=== PATIENT | female | born 1955 | race African-American/Black ===

== ENCOUNTER 2022-01-21 09:28 | Inpatient (IN) | payer MEDICARE, MEDICAID, SELFPAY ==
[2022-01-21] VITALS (14 sets, daily range): BP systolic 105–142; BP diastolic 60–84; PULSE 99–116; RESP 16–18; TEMP 37–37.4; O2SAT 93–100; BMI 27.1; BMI 20.5
--- NOTE | 2022-01-21 09:37 | XR_ITS ---
FINAL REPORT CLINICAL HISTORY: fever, cough FINDINGS: A single portable view of the chest was obtained. The heart size and pulmonary vascularity are within normal limits. The mediastinum is within normal limits. There are mild left lung base opacities favoring atelectasis over pneumonia. The bony thorax is intact. IMPRESSION: Mild left lung base opacities favoring atelectasis over pneumonia. Reviewed, Interpreted and Dictated by Zi Kumar III, MD Transcribed by Laquita Metcalf Authenticated and [facility]
--- NOTE | 2022-01-21 09:37 | CT_ITS ---
FINAL REPORT CLINICAL HISTORY: vomiting, CP FINDINGS: CT OF THE ABDOMEN AND PELVIS WITH CONTRAST Axial CT images of the abdomen and pelvis were obtained after the administration of IV contrast . This study was performed with techniques to keep radiation doses as low as reasonably achievable, (ALARA). Individualized dose reduction techniques using automated exposure control or adjustment of mA and/or kV according to the patient's size were employed. Abdomen: There is motion on many of the images which decreases the sensitivity of the exam. The liver has an unremarkable appearance, without evidence of mass or biliary ductal dilatation. The spleen is unremarkable. No adrenal mass is present. The pancreas has an unremarkable appearance. There are small bilateral renal cysts There is no renal stone or hydronephrosis. The aorta is normal in caliber. There are multiple air-filled bowel loops in a nonspecific pattern. There is a moderate amount of retained stool. Pelvis: The appendix is not well-visualized. There is a Cortes catheter in the urinary bladder. Postoperative changes are seen in the right femur. Severe degenerative changes are seen in both hips. IMPRESSION: Multiple air filled bowel loops in a nonspecific pattern with a moderate amount of retained stool. Bilateral renal cysts. Reviewed, Interpreted and Dictated by Zi Kumar III, MD Transcribed by Sadie Ivey Authenticated and . [facility]
--- NOTE | 2022-01-21 09:42 | HMH.EDGENADL ---
Discharge Plan Disposition Chief Complaint: Fever Prescriptions Prescriptions: No Action tizanidine 2 mg Tablet 4 mg PO TID lisinopril 20 mg Tablet 20 mg PO DAILY glucosamine sulfate [Glucosamine] 500 mg Tablet 500 mg PO DAILY Rx Instructions: administer with a meal acetaminophen 500 mg Tablet 500 mg PO Q6H PRN (Reason: Pain) metoclopramide HCl 5 mg Tablet 5 mg PO BID methocarbamol 750 mg Tablet 750 mg PO TID lansoprazole 30 mg Capsule,Delayed Release(Dr/Ec) 30 mg PO DAILY furosemide 20 mg Tablet 20 mg PO QODHS polyethylene glycol 3350 17 gram/dose Powder 17 g PO DAILY loratadine 10 mg Tablet 10 mg PO DAILY promethazine-DM 6.25-15 mg/5 mL Syrup 5 ml PO Q6H PRN (Reason: N/V) calcium carbonate 250 mg Tablet,Chewable 250 mg PO BID PRN (Reason: reflux) ondansetron HCl [Zofran] 4 mg Tablet 4 mg PO Q6H PRN (Reason: N/V) acetaminophen 500 mg Tablet 500 mg PO Q4H PRN (Reason: Pain) Enema 19-7 gram/118 mL Enema 133 ml ID ONCE PRN (Reason: Constipation) Clinical Impressions Clinical Impression: SIRS (systemic inflammatory response syndrome), COVID-19 Discharge ED Provider: Nic Raza General Adult HPI General Chief complaint: Fever Stated complaint: N/V Time Seen by Provider: 01/21/22 09:37 History of Present Illness HPI narrative: Patient has past medical history of cerebral palsy in long-term care facility presents emergency department for evaluation of retching. History is obtained by report, by patient. Onset was acute occurring over the last 24 to 48 hours, associated nonproductive cough, retching however no vomiting. Patient had fever T-max 101 at outside care facility. Patient reportedly had a tooth pulled earlier this week. Last bowel movement unknown. Patient denies dysuria, chest pain. No other acute complaints at this time. Related Data Home Medications Medication Instructions Recorded Confirmed acetaminophen 500 mg tablet 500 mg PO Q4H PRN Pain 01/21/22 01/21/22 acetaminophen 500 mg tablet 500 mg PO Q6H PRN Pain 01/21/22 01/21/22 calcium carbonate 250 mg chewable 250 mg PO BID PRN reflux 01/21/22 01/21/22 tablet furosemide 20 mg tablet 20 mg PO QODHS Edema 01/21/22 01/21/22 glucosamine sulfate 500 mg tablet 500 mg PO DAILY cerebral palsy 01/21/22 01/21/22 (Glucosamine) lansoprazole 30 mg capsule,delayed 30 mg PO DAILY GERD 01/21/22 01/21/22 release lisinopril 20 mg tablet 20 mg PO DAILY Hypertension 01/21/22 01/21/22 loratadine 10 mg tablet 10 mg PO DAILY allergies 01/21/22 01/21/22 methocarbamol 750 mg tablet 750 mg PO TID cerebral palsy 01/21/22 01/21/22 metoclopramide HCl 5 mg tablet 5 mg PO BID GERD 01/21/22 01/21/22 ondansetron HCl 4 mg tablet 4 mg PO Q6H PRN N/V 01/21/22 01/21/22 polyethylene glycol 3350 17 17 g PO DAILY constipation 01/21/22 01/21/22 gram/dose oral powder promethazine-DM 6.25 mg-15 mg/5 mL 5 ml PO Q6H PRN N/V 01/21/22 01/21/22 oral syrup sodium phosphates 19 gram-7 133 ml ID ONCE PRN Constipation 01/21/22 01/21/22 gram/118 mL enema (Enema) tizanidine 2 mg tablet 4 mg PO TID left arm pain 01/21/22 01/21/22 Allergies Allergy/AdvReac Type Severity Reaction Status Date / Time No Known Allergies Allergy Verified 01/21/22 10:01 [facility] Medical History (Updated 01/21/22 @ 14:53 by Nic Raza MD) Cerebral palsy Constipation, unspecified Contracture, left elbow Contracture, left hand Contracture, left shoulder Contracture, right elbow Contracture, right hand Contracture, right shoulder COVID-19 Essential (primary) hypertension GERD without esophagitis Hypothyroidism Muscle weakness (generalized) Noninfective gastroenteritis and colitis, unspecified Pain in left shoulder 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
--- NOTE | 2022-01-21 10:01 | ECG_ITS ---
APPROVED REPORT Exam: Resting ECG HR:114 bpm ECG Measurements Heart Rate 114 AXES MS 159 P 58 QRSd 76 QRS 60 QT 306 T 51 QTc 373 Conclusion SINUS TACHYCARDIA ABNORMAL RHYTHM ECG UNCONFIRMED REPORT Electronically signed by : Manuel Escobar MD 01/24/2022 18:03:32
--- NOTE | 2022-01-21 10:06 | PC.NURSE ---
Obtained EKG Pt is still saying she still feeling nausea at this time tristan bag in bed with pt
[2022-01-21 10:11] LABS: Basophils % 0.2 % (0.1-2.0); Eosinophils # 0.2 K/mm3 (0.0-0.4); Hematocrit 48.3 % (37.0-47.0); Hemoglobin 14.5 g/dL (12.2-16.2); Lymphocytes # 1.7 K/mm3 (0.7-4.5); Lymphocytes % 18.8 % (10-50); Mean Corpuscular Hemoglobin 26.9 pg (27.0-31.2); Mean Corpuscular Volume 89.8 fl (81-99); Mean Platelet Volume 9.5 fl (7.4-10.4); Monocytes # 0.4 K/mm3 (0.1-1.0); Monocytes % 4.7 % (1.7-9.3); Neutrophils # 6.7 K/mm3 (1.8-7.8); Neutrophils % 74.2 % (37.0-80.0); Platelet Count 222 K/mm3 (142-424); Red Blood Count 5.38 M/mm3 (4.20-5.40); Red Cell Distribution Width 15.1 % (11.5-17.5)
--- NOTE | 2022-01-21 10:11 | PC.NURSE ---
Pharmacy is mixing antibiotics at this time.
[2022-01-21 10:14] LABS: Chloride 106 mmol/L (98-107); Potassium 4.5 mmoL/L (3.5-5.1); Sodium 142 mmol/L (136-145)
[2022-01-21 10:17] LABS: Alanine Aminotransferase 22 U/L (12-78); Albumin Level 4.7 g/dl (3.5-5.0); Albumin/Globulin Ratio 1.1 (1.1-1.8); Alkaline Phosphatase 179 U/L (38-126); Anion Gap 18.5 mEq/L (5-15); Aspartate Amino Transferase 35 U/L (14-36); Bilirubin,Total 0.2 mg/dl (0.2-1.3); Blood Urea Nitrogen 13 mg/dl (7-17); Calcium 9.3 mg/dl (8.4-10.2); Carbon Dioxide 22 mmol/L (22.0-30.0); Creatinine Clearance Estimated 49 mL/min (50-200); Estimated Glomerular Filt Rate 100 ml/min (>60); GFR (African American) 121 ML/MIN (>60); Globulin 4.1 g/dL (1.3-3.2); Glucose 88 mg/dl (74-100); Lipase 155 U/L (23-300); Total Protein,Serum 8.8 g/dl (6.3-8.2)
--- NOTE | 2022-01-21 10:18 | PC.NURSE ---
spoke with pt sister jacoby ([phone]), she was calling to check to see if pt had gotten here yet and states she will be coming to see pt.
--- NOTE | 2022-01-21 10:24 | PC.NURSE ---
1020-notified lab of RIANA HORN adding ddimer on pt, spoke daniele
[2022-01-21 10:34] LABS: D-Dimer 0.58 ug/mL (0.0-0.5)
[2022-01-21 10:47] LABS: Microscopic, Urine URINE MICROSCOPIC (MICROSCOPIC)
--- NOTE | 2022-01-21 10:47 | CT_ITS ---
FINAL REPORT TECHNIQUE: Then section axial CT images of the chest were obtained with contrast. Three-D reformatted images were also obtained.This study was performed with techniques to keep radiation doses as low as reasonably achievable (ALARA). Individualized dose reduction techniques using automated exposure control or adjustment of mA and/or kV according to the patient''s size were employed. CLINICAL HISTORY: tachy/elevated dimer FINDINGS: There is no evidence of pulmonary embolism. There is no evidence of thoracic aortic aneurysm or dissection. There is no evidence of mediastinal or hilar mass or adenopathy. There is no evidence of pulmonary mass or suspicious nodule. There is mild bibasilar atelectasis. Limited images of the upper abdomen show the esophagus to be moderately distended with air and fluid. This is of uncertain significance but could be due to reflux. There is dextroscoliosis. IMPRESSION: No evidence of pulmonary embolism or aortic dissection.. Moderate distension of the esophagus with air and fluid of uncertain significance could be due to reflux. Reviewed, Interpreted and Dictated by Zi Kumar III, MD Transcribed by Sadie Ivey Authenticated and [facility]
--- NOTE | 2022-01-21 10:48 | PC.NURSE ---
DEDE @ [facility] @ BS
[2022-01-21 10:51] LABS: Appearance,Urine CLEAR (Clear); Blood, Urine TRACE-I (Negative); Color,Urine YELLOW (Yellow); Glucose,Urine (UA) Negative (Negative); Ketones,Urine 2+ (Negative); Leukocyte Esterase,Urine 1+ (Negative); Nitrate,Urine Negative (Negative); PH,Urine 5.5 (5.0-8.5); Protein,Urine Negative (Negative); Specific Gravity, Urine 1.025 (1.005-1.030); Urobilinogen,Urine 0.2 EU/dl (0.2)
--- NOTE | 2022-01-21 11:09 | PC.NURSE ---
20g ultrasound guided EJ placed in rt neck per Dr. Raza. 40mL saline flush used to check proper placement. Dr Raza cleared IV for use of fluid/med administration.
[2022-01-21 11:12] LABS: Bilirubin,Urine Negative (Negative)
[2022-01-21 11:13] LABS: Bacteria,Urine Trace /lpf; RBC,Urine Occasional #/hpf (0-3); WBC,Urine Occasional #/hpf (0-3)
--- NOTE | 2022-01-21 11:46 | PC.NURSE ---
Pt to rad
--- NOTE | 2022-01-21 12:32 | PC.NURSE ---
speaking to pt's mother for update on POC
--- NOTE | 2022-01-21 12:33 | PC.NURSE ---
covid swab sent to lab at this time
[2022-01-21 12:44] LABS: Influenza A, PCR Not Detected (NotDetected); Influenza B, PCR Not Detected (NotDetected)
[2022-01-21 13:53] LABS: Coronavirus 19, PCR Detected (NotDetected)
--- NOTE | 2022-01-21 14:26 | PC.NURSE ---
pt sister at , states no needs at this time. Will continue to monitor
--- NOTE | 2022-01-21 14:28 | PC.NURSE ---
RIANA HORN at discussing test results with pt and sistere
--- NOTE | 2022-01-21 14:34 | PC.NURSE ---
RIANA HORN speaking dr. bosch (hospitalist)
--- NOTE | 2022-01-21 14:42 | PC.NURSE ---
notified care management of admission, spoke with loi
--- NOTE | 2022-01-21 14:58 | PC.NURSE ---
MD called hospitalist and this nurse called [facility] to notify them that pt is COVID positive.
--- NOTE | 2022-01-21 15:46 | PC.NURSE ---
Report called to Elenita Metcalf
--- NOTE | 2022-01-21 15:47 | EXP.PHA.CONS ---
Pharmacy Consult Date: 01/21/22 Time: 15:47 Referring provider: DR. NOVA Reason for Consult:: VANCOMCYIN DOSING Allergies Allergy/AdvReac Type Severity Reaction Status Date / Time No Known Allergies Allergy Verified 01/21/22 10:01 Home Medications Medication Instructions Recorded Confirmed Type acetaminophen 500 mg tablet 500 mg PO Q4H PRN Pain 01/21/22 01/21/22 History acetaminophen 500 mg tablet 500 mg PO Q6H PRN Pain 01/21/22 01/21/22 History calcium carbonate 250 mg chewable 250 mg PO BID PRN reflux 01/21/22 01/21/22 History tablet furosemide 20 mg tablet 20 mg PO QODHS Edema 01/21/22 01/21/22 History glucosamine sulfate 500 mg tablet 500 mg PO DAILY cerebral palsy 01/21/22 01/21/22 History (Glucosamine) lansoprazole 30 mg capsule,delayed 30 mg PO DAILY GERD 01/21/22 01/21/22 History release lisinopril 20 mg tablet 20 mg PO DAILY Hypertension 01/21/22 01/21/22 History loratadine 10 mg tablet 10 mg PO DAILY allergies 01/21/22 01/21/22 History methocarbamol 750 mg tablet 750 mg PO TID cerebral palsy 01/21/22 01/21/22 History metoclopramide HCl 5 mg tablet 5 mg PO BID GERD 01/21/22 01/21/22 History ondansetron HCl 4 mg tablet 4 mg PO Q6H PRN N/V 01/21/22 01/21/22 History polyethylene glycol 3350 17 17 g PO DAILY constipation 01/21/22 01/21/22 History gram/dose oral powder promethazine-DM 6.25 mg-15 mg/5 mL 5 ml PO Q6H PRN N/V 01/21/22 01/21/22 History oral syrup sodium phosphates 19 gram-7 133 ml HI ONCE PRN Constipation 01/21/22 01/21/22 History gram/118 mL enema (Enema) tizanidine 2 mg tablet 4 mg PO TID left arm pain 01/21/22 01/21/22 History New Prescriptions to Start Prescriptions: Height: 1.42 m Weight: 54.885 kg Laboratory Results:: Laboratory Results - last 24 hr 01/21/22 09:55: WBC 9.0, RBC 5.38, Hgb 14.5, Hct 48.3 H, MCV 89.8, MCH 26.9 L, MCHC 30.0 L, RDW 15.1, Plt Count 222, MPV 9.5, Neut % (Auto) 74.2, Lymph % (Auto) 18.8, [place] % (Auto) 4.7, Eos % (Auto) 2.0, Baso % (Auto) 0.2, Neut # (Auto) 6.7, Lymph # (Auto) 1.7, [place] # (Auto) 0.4, Eos # (Auto) 0.2, Baso # (Auto) 0.0 01/21/22 09:55: Sodium 142, Potassium 4.5, Chloride 106, Carbon Dioxide 22, Anion Gap 18.5 H, BUN 13, Creatinine 0.60, Estimated Creat Clear 49, Estimated GFR 100, Est GFR ( Amer) 121, Glucose 88, Calcium 9.3, Total Bilirubin 0.2, AST 35, ALT 22, Alkaline Phosphatase 179 H, Total Protein 8.8 H, Albumin 4.7, Globulin 4.1 H, Albumin/Globulin Ratio 1.1, Lipase 155 01/21/22 09:55: Lactate 1.0 01/21/22 09:55: D-Dimer 0.58 H 01/21/22 10:43: Urine Color Yellow, Urine Appearance Clear, Urine pH 5.5, Ur Specific [place] 1.025, Urine Protein Negative, Urine Glucose (UA) Negative, Urine Ketones 2+, Urine Blood Trace-i, Urine Nitrate Negative, Urine Bilirubin Negative, Urine Urobilinogen 0.2, Ur Leukocyte Esterase 1+ A, Urine RBC Occasional, Urine WBC Occasional, Ur Squamous Epith Cells 3-5, Urine Bacteria Trace 01/21/22 12:31: SARS-CoV-2 (PCR) Detected A, Influenza A Untype (PCR) Not detected, Influenza Type B (PCR) Not detected Medical History: Medical History (Updated 01/21/22 @ 14:53 by Nic Raza MD) Cerebral palsy Constipation, unspecified Contracture, left elbow Contracture, left hand Contracture, left shoulder Contracture, right elbow Contracture, right hand Contracture, right shoulder COVID-19 Essential (primary) hypertension GERD without esophagitis Hypothyroidism Muscle weakness (generalized) Noninfective gastroenteritis and colitis, unspecified Pain in left shoulder 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
--- NOTE | 2022-01-21 15:51 | PC.NURSE ---
pt repositioned in bed and pillow placed behind her for comfort
--- NOTE | 2022-01-21 16:18 | PC.NURSE ---
notified dr. bosch per senior care staff pt was covid positive on 12/14/21.
--- NOTE | 2022-01-21 16:51 | PC.NURSE ---
devikasurkarolina staff at to transport pt
--- NOTE | 2022-01-21 17:00 | PC.NURSE ---
patient arrived to floor by stretcher from ED
--- NOTE | 2022-01-21 18:24 | EXP.HP ---
History of Present Illness *Admission Date: 01/21/22 *Reason for visit:: cough, nausea *History of present illness: Ms. Bowman is a 66-year-old female who is a long-term resident of [facility]. She has a history significant for spastic cerebral palsy, hypothyroidism, hypertension, chronic GERD. She presents to the ER due to worsening cough, fever, nausea and vomiting over the past 24 to 48 hours. Her cough has been nonproductive. History obtained in the ER from family and patient. Fever to 101 at [facility]. Of note family reported she had had a tooth pulled earlier this week. She denies shortness of breath, chest pain, dysuria, diarrhea. Reports she feels like throwing up but cannot get it up. Cough not productive. Evaluation in the ER found her to have criteria for sepsis including tachycardia and fever. Positive for COVID-19. This is her second case in less than 3 months. Admitted to medicine for COVID-19 treatment given meeting septic criteria. On evaluation after arriving to the floor, she is pleasant but appears ill. States she is cold even though she is warm to touch. Has a dry nonproductive cough. 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 Unspecified urinary incontinence Surgical History History of left hip replacement History of right hip replacement Family History No significant family history Social History Smoking Status: Never smoker alcohol intake: never current occupational status: unemployed and disabled Travel in the last 8 weeks: None Review of Systems Review of Systems Review of systems (narrative): Complete review of systems performed, pertinent positives and negatives as per HPI Meds Home Medications and Allergies Home Medications Medication Instructions Recorded Confirmed Type acetaminophen 500 mg tablet 500 mg PO Q4H PRN Pain 01/21/22 01/21/22 History acetaminophen 500 mg tablet 500 mg PO Q6H PRN Pain 01/21/22 01/21/22 History calcium carbonate 250 mg chewable 250 mg PO BID PRN reflux 01/21/22 01/21/22 History tablet furosemide 20 mg tablet 20 mg PO QODHS Edema 01/21/22 01/21/22 History glucosamine sulfate 500 mg tablet 500 mg PO DAILY cerebral palsy 01/21/22 01/21/22 History (Glucosamine) lansoprazole 30 mg capsule,delayed 30 mg PO DAILY GERD 01/21/22 01/21/22 History release lisinopril 20 mg tablet 20 mg PO DAILY Hypertension 01/21/22 01/21/22 History loratadine 10 mg tablet 10 mg PO DAILY allergies 01/21/22 01/21/22 History methocarbamol 750 mg tablet 750 mg PO TID cerebral palsy 01/21/22 01/21/22 History metoclopramide HCl 5 mg tablet 5 mg PO BID GERD 01/21/22 01/21/22 History ondansetron HCl 4 mg tablet 4 mg PO Q6H PRN N/V 01/21/22 01/21/22 History polyethylene glycol 3350 17 17 g PO DAILY constipation 01/21/22 01/21/22 History gram/dose oral powder promethazine-DM 6.25 mg-15 mg/5 mL 5 ml PO Q6H PRN N/V 01/21/22 01/21/22 History oral syrup sodium phosphates 19 gram-7 133 ml VT ONCE PRN Constipation 01/21/22 01/21/22 History gram/118 mL enema (Enema) tizanidine 2 mg tablet 4 mg PO TID left arm pain 01/21/22 01/21/22 History New Prescriptions to Start Prescriptions: Allergies Allergy/AdvReac Type Severity Reaction Status Date / Time No Known Allergies Allergy Fadi
[2022-01-22 04:00] VITALS: BP 115/83; PULSE 99; RESP 20; TEMP 37.4; O2SAT 92
--- NOTE | 2022-01-22 06:40 | PC.NURSE ---
Pt aox4. no c/o voiced to staff. Pt completely immobile other then lifting/turning head. Pt has been repositioned and oral care provided q2hrs and upon request. Baby monitor in room in place of call light. Pt has been able to voice needs by talking into baby monitor.
--- NOTE | 2022-01-22 07:44 | P.PN_ITS ---
Subjective *Date: 01/22/22 *Time: 07:44 Medical Exam Vital signs and Labs for Last 24 Hours: Temp Pulse Resp BP Pulse Ox 99.3 F 99 H 20 115/83 92 L 01/22/22 04:00 01/22/22 04:00 01/22/22 04:00 01/22/22 04:00 01/22/22 04:00 Laboratory Results - last 24 hr 01/21/22 09:55: WBC 9.0, RBC 5.38, Hgb 14.5, Hct 48.3 H, MCV 89.8, MCH 26.9 L, MCHC 30.0 L, RDW 15.1, Plt Count 222, MPV 9.5, Neut % (Auto) 74.2, Lymph % (Auto) 18.8, [place] % (Auto) 4.7, Eos % (Auto) 2.0, Baso % (Auto) 0.2, Neut # (Auto) 6.7, Lymph # (Auto) 1.7, [place] # (Auto) 0.4, Eos # (Auto) 0.2, Baso # (Auto) 0.0 01/21/22 09:55: Sodium 142, Potassium 4.5, Chloride 106, Carbon Dioxide 22, Anion Gap 18.5 H, BUN 13, Creatinine 0.60, Estimated Creat Clear 49, Estimated GFR 100, Est GFR ( Amer) 121, Glucose 88, Calcium 9.3, Total Bilirubin 0.2, AST 35, ALT 22, Alkaline Phosphatase 179 H, Total Protein 8.8 H, Albumin 4.7, Globulin 4.1 H, Albumin/Globulin Ratio 1.1, Lipase 155 01/21/22 09:55: Lactate 1.0 01/21/22 09:55: D-Dimer 0.58 H 01/21/22 10:43: Urine Color Yellow, Urine Appearance Clear, Urine pH 5.5, Ur Specific [place] 1.025, Urine Protein Negative, Urine Glucose (UA) Negative, Urine Ketones 2+, Urine Blood Trace-i, Urine Nitrate Negative, Urine Bilirubin Negative, Urine Urobilinogen 0.2, Ur Leukocyte Esterase 1+ A, Urine RBC Occasional, Urine WBC Occasional, Ur Squamous Epith Cells 3-5, Urine Bacteria Trace 01/21/22 12:31: SARS-CoV-2 (PCR) Detected A, Influenza A Untype (PCR) Not detected, Influenza Type B (PCR) Not detected I & O for Labs for Last 24 Hours: Intake & Output 01/19/22 01/20/22 01/21/22 01/22/22 23:59 23:59 23:59 23:59 Intake Total 370 / 370 Output Total 600 / 600 200 / 200 Balance -230 / -230 -200 / -200 Weight 54.885 kg Microbiology Reports for the Last 24 Hours: Microbiology 01/21/22 09:37 Urine,Catheterized Urine Culture - Preliminary Gram Negative Rods
[2022-01-22 08:00] VITALS: BP 92/58; PULSE 97; RESP 20; TEMP 37.3; O2SAT 96
--- NOTE | 2022-01-22 08:30 | PC.NURSE ---
Spoke with Sister Anel about her concerns with pt being able to communicate with staff. Explained that we obtained a baby monitor with video feed to be able to watch pt. It also has the ability to talk back and forth with pt. Sister and pt stated they were fine with this.
[2022-01-22 09:21] LABS: Chloride 106 mmol/L (98-107); Potassium 3.9 mmoL/L (3.5-5.1); Sodium 141 mmol/L (136-145)
[2022-01-22 09:22] LABS: Basophils # 0.1 K/mm3 (0-0.2); Basophils % 0.8 % (0.1-2.0); Eosinophils # 0.2 K/mm3 (0.0-0.4); Eosinophils % 2.6 % (0.1-12.0); Hematocrit 41.7 % (37.0-47.0); Hemoglobin 13.2 g/dL (12.2-16.2); Lymphocytes # 1.9 K/mm3 (0.7-4.5); Lymphocytes % 24.4 % (10-50); Mean Corpuscular HGB Conc 31.6 g/dL (31.8-35.4); Mean Corpuscular Hemoglobin 27.4 pg (27.0-31.2); Mean Corpuscular Volume 86.7 fl (81-99); Mean Platelet Volume 10.4 fl (7.4-10.4); Monocytes # 0.4 K/mm3 (0.1-1.0); Monocytes % 5.6 % (1.7-9.3); Neutrophils # 5.2 K/mm3 (1.8-7.8); Neutrophils % 66.7 % (37.0-80.0); Platelet Count 203 K/mm3 (142-424); Red Blood Count 4.81 M/mm3 (4.20-5.40); Red Cell Distribution Width 15.2 % (11.5-17.5); White Blood Count 7.9 K/mm3 (4.8-10.8)
[2022-01-22 09:24] LABS: Alanine Aminotransferase 16 U/L (12-78); Albumin Level 3.8 g/dl (3.5-5.0); Albumin/Globulin Ratio 1.2 (1.1-1.8); Alkaline Phosphatase 128 U/L (38-126); Anion Gap 14.9 mEq/L (5-15); Aspartate Amino Transferase 32 U/L (14-36); Blood Urea Nitrogen 9 mg/dl (7-17); Carbon Dioxide 24 mmol/L (22.0-30.0); Creatinine Clearance Estimated 49 mL/min (50-200); Estimated Glomerular Filt Rate 100 ml/min (>60); GFR (African American) 121 ML/MIN (>60); Globulin 3.3 g/dL (1.3-3.2); Glucose 88 mg/dl (74-100); Magnesium 1.9 mg/dl (1.6-2.3); Total Protein,Serum 7.1 g/dl (6.3-8.2)
[2022-01-22 09:25] LABS: Bilirubin,Total 0.1 mg/dl (0.2-1.3)
[2022-01-22 12:00] VITALS: BP 105/70; PULSE 97; RESP 20; TEMP 37; O2SAT 98
--- NOTE | 2022-01-22 12:22 | EXP.DC.SUM ---
General Admission date:: 01/21/22 Discharge date: 01/22/22 HPI HPI HPI: Ms. Bowman is a 66-year-old female who is a long-term resident of [facility]. She has a history significant for spastic cerebral palsy, hypothyroidism, hypertension, chronic GERD. She presents to the ER due to worsening cough, fever, nausea and vomiting over the past 24 to 48 hours. Her cough has been nonproductive. History obtained in the ER from family and patient. Fever to 101 at [facility] Of note family reported she had had a tooth pulled earlier this week. She denies shortness of breath, chest pain, dysuria, diarrhea. Reports she feels like throwing up but cannot get it up. Cough not productive. Evaluation in the ER found her to have criteria for sepsis including tachycardia and fever. Positive for COVID-19. This is her second case in less than 3 months. Admitted to medicine for COVID-19 treatment given meeting septic criteria. On evaluation after arriving to the floor, she is pleasant but appears ill. States she is cold even though she is warm to touch. Has a dry nonproductive cough. Hospital Course Hospital Course Hospital Course: Ms. Bowman is a complex 66-year-old female who is a long-term resident at [facility]. She presented to the ER at [facility] with sepsis secondary to COVID and UTI. Sepsis criteria with infections, tachycardia, fever. Started on IV fluids and antibiotics. Treated with remdesivir and monitored overnight. Responded well to treatment with no oxygen requirement during admission. Day after admission, states she is feeling better. Denies shortness of breath, chest pain, nausea or vomiting. Urine culture currently growing gram-negative rods, speciation and sensitivity still pending. -Continued home medications for chronic conditions including hypertension, spasticity, hypothyroidism, GERD. -Antiemetics for nausea, tolerated well. At this time she is medically stable for discharge back to [facility] to continue to receive nursing care. Would recommend finishing 4 more days of levofloxacin starting 01/23/2022. Complete empiric antibiotic course. Exam Data for Last 24 hours Vital signs and Labs for Last 24 Hours: Temp Pulse Resp BP Pulse Ox 99.2 F 97 H 20 92/58 L 96 01/22/22 08:00 01/22/22 08:00 01/22/22 08:00 01/22/22 08:00 01/22/22 08:00 Laboratory Results - last 24 hr 01/21/22 10:43: Urine Color Yellow, Urine Appearance Clear, Urine pH 5.5, Ur Specific [place] 1.025, Urine Protein Negative, Urine Glucose (UA) Negative, Urine Ketones 2+, Urine Blood Trace-i, Urine Nitrate Negative, Urine Bilirubin Negative, Urine Urobilinogen 0.2, Ur Leukocyte Esterase 1+ A, Urine RBC Occasional, Urine WBC Occasional, Ur Squamous Epith Cells 3-5, Urine Bacteria Trace 01/21/22 12:31: SARS-CoV-2 (PCR) Detected A, Influenza A Untype (PCR) Not detected, Influenza Type B (PCR) Not detected 01/22/22 08:57: WBC 7.9, RBC 4.81, Hgb 13.2, Hct 41.7, MCV 86.7, MCH 27.4, MCHC 31.6 L, RDW 15.2, Plt Count 203, MPV 10.4, Neut % (Auto) 66.7, Lymph % (Auto) 24.4, [place] % (Auto) 5.6, Eos % (Auto) 2.6, Baso % (Auto) 0.8, Neut # (Auto) 5.2, Lymph # (Auto) 1.9, [place] # (Auto) 0.4, Eos # (Auto) 0.2, Baso # (Auto) 0.1 01/22/22 08:57: Sodium 141, Potassium 3.9, Chloride 106, Carbon Dioxide 24, Anion Gap 14.9, BUN 9 D, Creatinine 0.60, Estimated Creat Clear 49, Estimated GFR 100, Est GFR ( Amer) 121, Glucose 88, Calcium 9.0, Magnesium 1.9, Total Bilirubin 0.1 L, AST 32, ALT 16 D, Alkaline Phosphatase 128 H, Total Protein 7.1, Albumin 3.8 D, Globulin 3.3 H, Albumin/Globulin Ratio 1.2 I & O for Last 24 hours: Intake & Output 01/19/22 01/20/22 01/21/22 01/22/22 23:59 23:59 23:59 23:59 Intake Total 370 / 370 120 / 120 Output Total 600 / 600 200 / 200 Balance -230 / -230 -80 / -80 Weight 54.885 kg Microbiology Reports for the Last 24 Hours: Microbiology
--- NOTE | 2022-01-22 15:00 | PC.NURSE ---
Called report hayley AGUAYO from [facility]
--- NOTE | 2022-01-22 16:38 | PC.NURSE ---
Pt is A/Ox4. She is a q2 turn, and oral care. She has had a bath, and her teeth brushed. She ate a little dinner, and lunch tolerated it well. D/C her tran Cath. Called report to [facility] via [facility]. Contacted ambulance to take pt back. Waiting till ambulance is able to transport.
--- NOTE | 2022-01-22 17:33 | PC.NURSE ---
Spoke with [facility] regarding ride for patient back to [facility], they are unable to take the patient at this time. They recommended I call [facility] and if they weren't able to call [facility]. [facility] did not answer after 4 attempts. Spoke with [facility], they are on the way to bulk picker the patient.
--- NOTE | 2022-01-24 12:46 | CARE MANAGER ---
Spoke with nurse at [facility] for post-discharge phone interview, patient still is not feeling well she states. Waiting for urine cx.
== END 2022-01-22 18:16 | disposition short-term general hospital (02) | DRG 177 ==
LOC: ER 10:06 → 2ND 15:06
PROVIDERS: Admitting Provider Internal Medicine Adolescent Medicine; Emergency Provider Emergency Medicine; PCP Family Medicine; Visit Provider Internal Medicine Adolescent Medicine
DX: U07.1 COVID-19 (principal); A41.9 Sepsis, unspecified organism; G80.1 Spastic diplegic cerebral palsy; N39.0 Urinary tract infection, site not specified; E03.9 Hypothyroidism, unspecified; I10 Essential (primary) hypertension; K21.9 Gastro-esophageal reflux disease without esophagitis; Z96.643 Presence of artificial hip joint, bilateral
CPT/HCPCS: 36415; 51702; 71045; 71275; 74177; 80053; 81001; 83605; 83690; 83735; 85025; 85378; 87040; 87086; 87088; 87186; 93005; 99291; C9803; J0696; J2405; J3370; Q9967; U0003; U0005